=== PATIENT | male | born 1995 | race Two or more races ===

== ENCOUNTER 2022-04-21 15:50 | Emergency (ER) | payer MEDICAID ==
[~2022-04-21] VITALS: Ht 185.4 cm; Wt 89.4 kg
[2022-04-21] MEDS ORDERED: POLYSOL15 OP (18:58)
[2022-04-21 19:00] VITALS: BP 146/90
[2022-04-21] MEDS ORDERED: TETRACAINE HCL 0.5% OPTH(EYE) SOLN 4ML RIGHTEYE ONE (19:00)
[2022-04-21] MEDS ORDERED: FLUORESCEIN SOD OPTH TEST STRIP RIGHTEYE ONE (19:00)
== END 2022-04-21 19:07 | disposition home or self-care (01) ==
LOC: ER 15:50
DX: H10.31 Unspecified acute conjunctivitis, right eye (principal); Z88.1 Allergy status to other antibiotic agents